=== PATIENT | female | born 1975 | race Caucasian/White ===

== ENCOUNTER 2020-07-23 05:33 | Outpatient (RCR) | payer BC ==
[~2020-07-23] VITALS: Ht 162.6 cm; Wt 124.1 kg
[~2020-07-23 05:33] MED LIST: DULO60CA59 PO; ESTR2TAB PO; HYDR25TA4 PO; MTP25TSR PO; MULT-884 PO; OMEP40CA27 PO; POTA99TA21 PO
== END 2020-07-23 10:39 | disposition home or self-care (01) ==
LOC: PREOP 05:33
PROVIDERS: ATTEND Surgery
DX: Z01.818 Encounter for other preprocedural examination (principal); K21.9 Gastro-esophageal reflux disease without esophagitis; K62.5 Hemorrhage of anus and rectum; Z20.828 Contact with and (suspected) exposure to other viral communicable diseases
CPT/HCPCS: 87635

== ENCOUNTER 2020-07-27 07:23 | Day surgery (SDC) | payer BC ==
[2020-07-27] VITALS (7 sets, daily range): BP systolic 121–140; BP diastolic 74–101
[~2020-07-27] VITALS: Ht 162.6 cm; Wt 124.1 kg
[2020-07-27] MEDS ORDERED: LACTATED RINGERS 1,000 ML IV ONE (07:36)
[2020-07-27] MEDS ORDERED: MIDAZOLAM 5 MG/5 ML (VERSED) VIAL IV ONE (07:45)
[2020-07-27] MEDS ORDERED: HURRICAINE EXT TUBE (BENZOCAINE) XX PRN (07:45)
[2020-07-27] MEDS ORDERED: LACTATED RINGERS 1,000 ML IV STA (07:45)
[2020-07-27] MEDS ORDERED: fentaNYL INJECTION 100 MCG/2 ML AMP IVP ONE (07:45)
--- NOTE | 2020-07-27 08:18 | Progress Note-Pre Operative ---
Pre-Operative Progress Note H&P Reviewed The H&P was reviewed, patient examined and no changes noted. Time Seen by Provider: 08:11 Date H&P Reviewed: Jul 27, 2020 Time H&P Reviewed: 08:12 Pre-Operative Diagnosis: Rectal Bleeding, GERD, Dysphagia ANA AYALA DO Jul 27, 2020 08:18
[2020-07-27] MEDS ORDERED: HURRICAINE EXT TUBE (BENZOCAINE) ONE (08:38)
[2020-07-27] MEDS ORDERED: MIDAZOLAM 2 MG/2 ML (VERSED) VIAL ONE (08:50)
[2020-07-27] MEDS ORDERED: proPOfol 200 MG/20 ML (DIPRIVAN) VIAL IV ONE ×3 (08:50→09:29)
--- NOTE | 2020-07-27 09:51 | Progress Note-Post Operative ---
Post-Operative Progess Note Surgeon (s)/Staff Scientist (s) Surgeon ANA AYALA DO Staff Scientist: none Pre-Operative Diagnosis Rectal Bleeding, GERD, Dysphagia Post-Operative Diagnosis Gastritis Gastric Polyp Hiatal hernia Asc colon polyp int hemorrhoids anal fissure Procedure & Operative Findings Date of Procedure 07/27/20 Procedure Performed/Findings EGD with bx Colon with hot bx Anesthesia Type IV sedation by anesthesia Estimated Blood Loss Estimated blood loss (mL): scant Specimens/Packing Specimens Removed antral bx gastric polyp GE jxn bx Asc colon polyp ANA AYALA DO Jul 27, 2020 09:51
--- NOTE | 2020-07-27 09:52 | Endoscopy Discharge Instruct ---
Endo Procedure/Findings Findings 1.: Hiatal Hernia, Gastritis 2.: Polyp 3.: Internal Hemorrhoids Discharge Instructions - Activity: You might feel a little sleepy until tomorrow. This is due to the medicine you received to relax you. Until tomorrow, you should: NOT drive a car, operate machinery or power tools. NOT drink any alcoholic beverages. NOT make any important decisions or sign importortant papers. Do not return to work until tomorrow, unless otherwise instructed. Resume previous activities tomorrow. Diet: Start by taking liquids. If you tolerate liquids, advance to solid food. 1.: Colonscopy in 5 years, EGD in 3 years Notify Physician - If you experience excessive bleeding, unusual abdominal pain, fever, or chest pain, contact your doctor immediately. ANA AYALA DO Jul 27, 2020 09:52
--- NOTE | 2020-07-27 12:41 | Anesthesia-General Post-Op ---
MAC Patient Condition Mental Status/LOC: Same as Preop Cardiovascular: Satisfactory Nausea/Vomiting: Absent Respiratory: Satisfactory Pain: Controlled Complications: Absent Post Op Complications Complications None Follow Up Care/Instructions Patient Instructions None needed. Anesthesiology Discharge Order Discharge Order Patient was seen this morning after the procedure and she was doing well, no complaints, stable vital signs, no apparent adverse anesthesia problems. ABDIRIZAK AKINS DO Jul 27, 2020 12:41
--- NOTE | 2020-07-28 20:23 | OPERATIVE REPORT ---
DATE OF SERVICE: 07/27/2020 PREOPERATIVE DIAGNOSIS: Rectal bleed, GERD and dysphagia. POSTOPERATIVE DIAGNOSES: Gastritis, gastric polyp, hiatal hernia, colon polyps, internal hemorrhoids and anal fissure. PROCEDURE: 1. EGD with biopsy. 2. Colonoscopy with hot biopsy. SURGEON: Michael Perkins DO RN LABOR DELIVERY: None. ANESTHESIA: IV sedation by the anesthesiologist. SPECIMEN: Biopsy of the antrum, biopsy of the gastric polyp, biopsy of the GE junction and then the ascending colon polyp, hot biopsy. BLOOD LOSS: Scant. FLUIDS: Per anesthesia. POSTOPERATIVE CONDITION: Stable. INDICATION FOR PROCEDURE: The patient is a 44-year-old female who had some rectal bleeding. She has also had some GERD symptoms and dysphagia, needed a workup. FINDINGS: The patient had gastritis, gastric polyp and a large hiatal hernia. She also had a polyp in the ascending colon, small internal hemorrhoids and anal fissure, which is most likely the cause of her bleeding. PROCEDURE NOTE: After informed consent was obtained, the patient was brought to the endoscopy suite, placed in bed in left lateral decubitus position. She was administered IV sedation by the anesthesiologist who then monitored her vitals the entire time, heart rate, blood pressure and pulse ox, started with the EGD, placing scope down the mouth through the esophagus into the stomach. Upon entering the stomach, noted some inflammation of the antrum, took a picture, then pushed into the duodenum. Duodenum looked fine. Pulled back, did a biopsy of the antrum, then retroflexed the scope, saw a large hiatal hernia, took a picture of this. I noted a gastric polyp, did a biopsy to remove this and then pulled the scope into the GE junction and did a biopsy of the GE junction. At this point, then suctioned all the air out of the stomach and then pulled the scope up the esophagus and out the mouth. Switched camera, switched gloves, went down below, started the colonoscopy, pushed in to about [address], in the ascending colon, saw a polyp and elected to do a hot biopsy of this and then pushed passes to the cecum, took a picture of appendiceal orifice, noted the ileocecal valve and then slowly withdrew the scope insufflating to look circumferentially at the colin looking the cecum, up the ascending colon to the hepatic flexure, then down the transverse colon, splenic flexure, into the descending colon and then down into the sigmoid and finally into the rectum, retroflexed in rectal vault, saw some minimal internal hemorrhoids and while pulling the scope out, noted an anal fissure, tried to take a picture of this. The patient was recovered in endoscopy suite. Job ID: [id number] DocumentID: [id number] Dictated Date: 07/28/2020 11:54:34 Internal Medicine Physician Assistant Date: 07/28/2020 20:22:07 Dictated By: MICHAEL PERKINS DO
== END 2020-07-27 10:40 | disposition home or self-care (01) ==
LOC: ENDO 07:23
PROVIDERS: ATTEND Surgery
DX: K31.7 Polyp of stomach and duodenum (principal); K29.50 Unspecified chronic gastritis without bleeding; D12.2 Benign neoplasm of ascending colon; K64.8 Other hemorrhoids; K44.9 Diaphragmatic hernia without obstruction or gangrene; K21.9 Gastro-esophageal reflux disease without esophagitis; K60.2 Anal fissure, unspecified; K62.5 Hemorrhage of anus and rectum; I10 Essential (primary) hypertension; G47.33 Obstructive sleep apnea (adult) (pediatric); F41.9 Anxiety disorder, unspecified; F32.9 Major depressive disorder, single episode, unspecified; Z79.899 Other long term (current) drug therapy; Z88.8 Allergy status to other drugs, medicaments and biological substances; Z90.710 Acquired absence of both cervix and uterus; Z80.9 Family history of malignant neoplasm, unspecified

== ENCOUNTER → 2021-11-23 | Outpatient (CLI) | payer SELFPAY ==
[~2021-11-23] MED LIST changes: -ESTR2TAB PO; +ESTR2TAB3 PO; -OMEP40CA27 PO; +OMEP40CA6 PO; -POTA99TA21 PO; +POTA99TA26 PO
--- NOTE | 2021-11-23 09:34 | Diagnostic Imaging Report ---
EXAMINATION: CT calcium scoring without contrast. TECHNIQUE: Multiple contiguous axial images were obtained through the chest without the use of intravenous contrast for purposes of calcium scoring. All CT scans use one or more of the following dose optimizing techniques: automated exposure control, MA and/or KvP adjustment based on patient size and exam type or iterative reconstruction. HISTORY: Obesity. COMPARISON: None available. FINDINGS: The calculated coronary artery calcium score is zero. There is no edema or pneumonia. No pleural effusion. No pneumothorax. No suspicious nodules. Heart size is normal. No pericardial effusion. Aorta is normal in caliber. There is no mediastinal lymphadenopathy. There is a 2.1 x 1.1 cm nodule in the anterior mediastinum with more normal-appearing thymus below the nodule. Limited views of the upper abdomen show hepatic steatosis. There are no suspicious osseous lesions. IMPRESSION: 1. Calculated coronary artery calcium score of zero. 2. Hepatic steatosis. 3. Anterior mediastinal nodule may represent thymic hyperplasia but an MRI of the chest is recommended for confirmation. Dictated by: Dictated on workstation # [id number]
== END ==
LOC: RAD FS 08:36
PROVIDERS: ATTEND Family Medicine
DX: E66.01 Morbid (severe) obesity due to excess calories (principal); K76.0 Fatty (change of) liver, not elsewhere classified; J98.59 Other diseases of mediastinum, not elsewhere classified
CPT/HCPCS: 75571